=== PATIENT | female | born 1925 | race Caucasian/White ===

== ENCOUNTER 2016-11-18 16:34 | Inpatient (IN) | payer MEDICARE ==
[2016-11-18 18:21] LABS: Granulocytes % 88.8 % (36.0-66.0); Lymphocytes % 6.2 % (24.0-44.0); Mean Platelet Volume 9.6 fl (6-9.5); Platelet Count 162 K/mm3 (150-450); Red Blood Count 3.88 M/mm3 (4.1-5.4); Red Cell Distribution Width 13.6 % (11.5-14.0)
--- NOTE | 2016-11-18 18:21 | ERPHSYRPT ---
- History of Present Illness Time Seen by Provider: 11/18/16 17:30 Source: patient, family Patient Subjective Stated Complaint: stated fell backwards onto her bottom. states "was a hard fall onto her bottom" and scooted herself to the door to let her daughter in. was using a cane at the time of the fall. complaining of pain 9/10 lower back, left hip around anterior abdomen Triage Nursing Assessment: pt reports falling at home about 245pm backwards onto bottom. bruising to sacrum and buttocks crease. pt c/o pain to "tail bone" , left hip and pain radiating around abdomen. pt denies hitting her head or losing consciousness. stated was reaching to drop something in the trash and her right knee "gave out". Physician History: CC: fall Hx: 89 y/o patient of Dr Farris fell backwards landing on buttocks. She had no head injury. No neck pain. She has low back pain and buttock pain. Unable to really walk. Declines pain meds here. No N/T/W. No chest pain. Maybe some abd pain. Occurred: just prior to arrival Reason for Fall: fell from standing pos Injuries/Pain Location: pelvis, lower Loss of Consciousness: no loss of consciousness Severity of Pain-Max: severe Severity of Pain-Current: mild Allergies/Adverse Reactions: No Known Drug Allergies Allergy (Unverified 11/18/16 17:40) Hx Tetanus, Diphtheria Vaccination/Date Given: Yes Hx Influenza Vaccination/Date Given: Yes Hx Pneumococcal Vaccination/Date Given: No - Review of Systems Constitutional: No Fever, No Chills Eyes: No Symptoms Ears, Nose, & Throat: No Symptoms Respiratory: No Cough, No Dyspnea Cardiac: No Chest Pain Abdominal/Gastrointestinal: Abdominal Pain, No Nausea, No Vomiting Genitourinary Symptoms: Incontinence (chronic) Musculoskeletal: Back Pain, Fall, Injury, No Neck Pain Skin: No Rash Neurological: No Headache All Other Systems: Reviewed and Negative - Past Medical History Neurological History: No Pertinent History Cardiac History: Hypertension Respiratory History: No Pertinent History Endocrine Medical History: No Pertinent History Musculoskeletal History: Arthritis GI Medical History: No Pertinent History History: No Pertinent History Psycho-Social History: No Pertinent History Female Reproductive Disorders: No Pertinent History Other Medical History: NONE NOTED, frequent UTIs - Past Surgical History Past Surgical History: Yes Neuro Surgical History: No Pertinent History Cardiac: No Pertinent History Respiratory: No Pertinent History Gastrointestinal: No Pertinent History Genitourinary: No Pertinent History Musculoskeletal: Joint Replacement, Orthopedic Surgery Female Surgical History: Hysterectomy Other Surgical History: 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 - Social History Smoking Status: Never smoker Exposure to second hand smoke: No Drug Use: none - Nursing Vital Signs Nursing Vital Signs: Initial Vital Signs Temperature 97.9 F Temperature Source Oral Pulse Rate 75 Blood Pressure [Right Arm] 140/72 Pain Intensity 9 - [place] Coma Score Best Eye Response (Diane): (4) open spontaneously Best Verbal Response (Joppa): (5) oriented Best Motor Response (Diane): (6) obeys commands Diane Total: 15 - Physical Exam General Appearance: alert, other (very pleasant lady) Head Injury: no evidence of injury Eye Exam: PERRL/EOMI ENT Exam: airway nml Neck Exam: No mid-line tenderness Respiratory/Chest Exam: normal breath sounds, No chest tenderness Cardiovascular Exam: normal heart sounds, regular rate/rhythm Gastrointestinal Exam: soft, No tenderness, No distention, No mass, No guarding Extremity Exam: normal inspection, normal range of motion Neurologic Exam: alert, oriented x 3, cooperative, sensation nml, No motor deficits Skin Exam: warm, dry SpO2 Interpretation: borderline oxygenation SpO2: 92 Oxygen Delivery: Room Air Comment: tender low lumbar with some presacral eccymosis. Pelvis stable. - Course Nursing assessment & vital signs reviewed: Yes - CT Exams abd/pelvis/lumbar CT Interpretation: Tele-radiologist Report (sacral fracture, lumbar compression fx) Ordered Tests: Active Orders 24 hr Category Date Time Status IV Insertion STAT Care 11/18/16 18:07 Active ABDOMEN AND PELVIS W/0 CONTRAS [CT] Stat Exams 11/18/16 18:08 Taken RECONSTRUCTION [CT] Stat Exams 11/18/16 18:10 Taken CBC W DIFF Stat Lab 11/18/16 18:17 Completed CMP Stat Lab 11/18/16 18:17 Completed Medication Summary Discontinued Medications Generic Name Dose Route Start Last Admin Trade Name Freq PRN Reason Stop Dose Admin Fentanyl Citrate 25 mcg 11/18/16 18:51 11/18/16 18:56 Sublimaze 100 Mcg/2 Ml IV 11/18/16 18:52 25 mcg STAT ONE Administration Fentanyl Citrate Confirm 11/18/16 18:53 Sublimaze 100 Mcg/2 Ml Administered 11/18/16 18:54 Dose 100 mcg .ROUTE .STK-MED ONE Ondansetron HCl 4 mg 11/18/16 19:10 11/18/16 19:14 Zofran 4 Mg/2 Ml Vial IV 11/18/16 19:11 4 mg STAT ONE Administration Ondansetron HCl Confirm 11/18/16 19:11 Zofran 4 Mg/2 Ml Vial Administered 11/18/16 19:12 Dose 4 mg .ROUTE .STK-MED ONE Lab/Rad Data: Laboratory Result Diagrams 11/18/16 18:17 11/18/16 18:17 Laboratory Results 11/18/16 11/18/16 Range/Units 18:17 18:17 WBC 11.0 H (4.0-10.5) K/mm3 RBC 3.88 L (4.1-5.4) M/mm3 Hgb 11.7 L (12.0-16.0) gm/dl Hct 35.3 (35-47) % MCV 91.0 (78-100) fl MCH 30.1 (26-32) pg MCHC 33.1 (32-36) g/dl RDW 13.6 (11.5-14.0) % Plt Count 162 (150-450) K/mm3 MPV 9.6 H (6-9.5) fl Gran % 88.8 H (36.0-66.0) % Lymphocytes % 6.2 L (24.0-44.0) % Monocytes % 5.0 (0.0-12.0) % Eosinophils % 0.0 (0.00-5.0) % Basophils % 0.0 (0.0-0.4) % Basophils # 0 (0-0.4) Sodium 131 L (136-145) mEq/L Potassium 3.8 (3.5-5.1) mEq/L Chloride 95 L (98-107) mEq/L Carbon Dioxide 26.4 (21-32) mEq/L Anion Gap 13.7 (5-15) MEQ/L BUN 19 (9-20) mg/dL Creatinine 0.90 (0.55-1.30) mg/dl Estimated GFR > 60 ML/MIN Glucose 122 H (70-110) MG/DL Calcium 8.4 L (8.5-10.1) mg/dL Total Bilirubin 0.6 (0.2-1.0) mg/dL AST 27 (15-37) U/L ALT 17 (12-78) U/L Alkaline Phosphatase 68 (46-116) U/L Serum Total Protein 6.6 (6.4-8.2) gm/dL Albumin 3.7 (3.4-5.0) g/dL - Progress Progress Note: 11/18/16 18:[address] to rule out pelvic fracture. 11/18/16 19:37 Explained fractures to pt and family. They agree for consult with Dr Ghotra. He was called and advised admit and bed rest and he will see for consultation. Called Dr Rukhsana Lambert for [place] and will admit. Will see patient in: hospital (full admit) Counseled pt/family regarding: lab results, diagnosis, need for follow-up, rad results - Departure Time of Disposition: 19:38 Departure Disposition: In-patient Admission Clinical Impression: Fall, Sacral fracture, closed, Compression fracture of L1 lumbar vertebra Condition: Fair Critical Care Time: No Referrals: AUSTIN FARRIS [Primary Care Provider] -
[2016-11-18 18:22] LABS: Mean Corpuscular Hemoglobin 30.1 pg (26-32)
[2016-11-18] MEDS ORDERED: SUBLIMAZE 100 MCG/2 ML IV ONE (18:51)
[2016-11-18] MEDS ORDERED: SUBLIMAZE 100 MCG/2 ML ONE (18:53)
[2016-11-18 19:02] LABS: ALBUMIN 3.7 g/dL (3.4-5.0); ALKALINE PHOSPHATASE 68 U/L (46-116); ANION GAP 13.7 MEQ/L (5-15); BILIRUBIN,TOTAL 0.6 mg/dL (0.2-1.0); BLOOD UREA NITROGEN 19 mg/dL (9-20); CHLORIDE 95 mEq/L (98-107); Carbon Dioxide 26.4 mEq/L (21-32); Glucose 122 MG/DL (70-110); Potassium 3.8 mEq/L (3.5-5.1); SGOT/AST 27 U/L (15-37); SGPT/ALT 17 U/L (12-78); SODIUM 131 mEq/L (136-145); Total Protein 6.6 gm/dL (6.4-8.2)
[2016-11-18] MEDS ORDERED: Zofran 4 MG/2 ML VIAL IV ONE (19:10)
[2016-11-18] MEDS ORDERED: Zofran 4 MG/2 ML VIAL ONE (19:11)
[2016-11-18] MEDS ORDERED: TYLENOL 325 MG PO PRN (21:16)
[2016-11-18] MEDS: DILAUDID 2 MG INJECTION IV PRN (23:47)
[2016-11-19] MEDS: DILAUDID 2 MG INJECTION IV PRN (05:21)
[2016-11-19 05:52] LABS: Mean Cell Volume 91.5 fl (78-100); Mean Corpuscular Hemoglobin 30.4 pg (26-32); Mean Platelet Volume 10.6 fl (6-9.5); Platelet Count 144 K/mm3 (150-450); Red Blood Count 3.55 M/mm3 (4.1-5.4); Red Cell Distribution Width 13.7 % (11.5-14.0)
[2016-11-19 05:55] LABS: ANION GAP 12.4 MEQ/L (5-15); Carbon Dioxide 27.6 mEq/L (21-32); Potassium 3.7 mEq/L (3.5-5.1)
--- NOTE | 2016-11-19 08:42 | PCM.HP ---
History of Present Illness - Chief Complaint Chief Complaint: Fall, sacral fracture closed, compression fracture of L1 lumbar vertebra History of Present Illness: is a 89 year old female who was getting her mail yesterday and her leg went out from under her and she fell. Denies syncope. She was found to have T12/L1 fx in the ER and Dr. Ghotra was consulted. She is on ASA and celebrex at home. - Review of Systems Musculoskeletal: Back Pain, Fall, Myalgias (had bilat lower leg pain about 1-2 mo ago which has resolved) All Other Systems: Reviewed and Negative Medications & Allergies Allergies/Adverse Reactions: Allergies Allergy/AdvReac Type Severity Reaction Status Date / Time No Known Drug Allergies Allergy Verified 11/18/16 21:47 - Past Medical History Neurological History: No Pertinent History Cardiac History: Hypertension Respiratory History: No Pertinent History Endocrine Medical History: No Pertinent History Musculoskelatal History: Arthritis GI Medical History: No Pertinent History History: No Pertinent History Pyscho-Social History: No Pertinent History Reproductive Disorders: No Pertinent History Comment: NONE NOTED, frequent UTIs - Female History Are you now?: No - Past Surgical History Past Surgical History: Yes Neuro Surgical History: No Pertinent History Cardiac History: No Pertinent History Respiratory Surgery: No Pertinent History GI Surgical History: No Pertinent History Genitourinary Surgical Hx: No Pertinent History Musculskeletal Surgical Hx: Joint Replacement, Orthopedic Surgery Female Surgical History: Hysterectomy Other Surgical History: 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 - Social History Smoking Status: Never smoker Exposure to second hand smoke: No Alcohol: None Drug Use: none - Physical Exam Vital Signs: Vital Signs - 24 hr Temp Pulse Resp BP Pulse Ox 11/19/16 07:30 98.4 F 69 18 91/52 94 L 11/19/16 04:00 100.5 F 84 20 90/53 90 L 11/18/16 21:40 97.9 F 66 20 117/59 95 11/18/16 19:39 92 L 11/18/16 17:24 97.9 F 75 140/72 92 L 11/18/16 16:34 97.9 F 75 140/72 92 L General Appearance: mild distress Neurologic Exam: alert, oriented x 3, cooperative Eye Exam: eyes nml inspection Neck Exam: normal inspection Respiratory Exam: normal breath sounds, lungs clear, No crackles/rales, No rhonchi, No wheezing Cardiovascular Exam: regular rate/rhythm, normal heart sounds Gastrointestinal/Abdomen Exam: soft, normal bowel sounds, No tenderness, No distention Back Exam: other (difficult due to pain with changing position) Extremity Exam: No pedal edema, No swelling Skin Exam: normal color, warm, dry Results - Labs Lab/Micro Results: Lab Results-Last 24 Hours 11/19/16 11/19/16 Range/Units 05:00 05:00 WBC 8.0 (4.0-10.5) K/mm3 RBC 3.55 L (4.1-5.4) M/mm3 Hgb 10.8 L (12.0-16.0) gm/dl Hct 32.5 L (35-47) % MCV 91.5 (78-100) fl MCH 30.4 (26-32) pg MCHC 33.2 (32-36) g/dl RDW 13.7 (11.5-14.0) % Plt Count 144 L (150-450) K/mm3 MPV 10.6 H (6-9.5) fl Sodium 131 L (136-145) mEq/L Potassium 3.7 (3.5-5.1) mEq/L Chloride 95 L (98-107) mEq/L Carbon Dioxide 27.6 (21-32) mEq/L Anion Gap 12.4 (5-15) MEQ/L BUN 19 (9-20) mg/dL Creatinine 0.94 (0.55-1.30) mg/dl Estimated GFR 60 ML/MIN Glucose 119 H (70-110) MG/DL Calcium 8.1 L (8.5-10.1) mg/dL Prealbumin 19.6 (18.0-35.7) mg/dL Assessment/Plan (1) Compression fracture of L1 lumbar vertebra Current Visit: Yes Status: Acute Assessment & Plan: Dr. Ghotra to consult. She was on ASA and celebrex SERVICE STATION OPERATOR. Code(s): S32.010A - WEDGE COMPRESSION FRACTURE OF FIRST LUMBAR VERTEBRA, INIT (2) Hypertension Current Visit: Yes Status: Acute Assessment & Plan: continue home meds. Code(s): I10 - ESSENTIAL (PRIMARY) HYPERTENSION (3) Fall Current Visit: Yes Status: Acute Assessment & Plan: PT to eval when pain is controlled. Code(s): W19.XXXA - UNSPECIFIED FALL, INITIAL ENCOUNTER
--- NOTE | 2016-11-19 08:58 | XRAY ---
Indication: Pelvic and low back pain following fall. Axial, coronal, and sagittal reformatted images of the lumbar spine obtained using the right data from the CT abdomen/pelvis study of the same day. Comparison: CTA abdomen/pelvis October 15, 2016. CT abdomen/pelvis reported separately. Osseous structures remain demineralized consistent with patient's age. New acute appearing L1 compression fracture with approximately 25% height loss but no encroachment on the spinal canal or foramina. Stable multilevel degenerative spondylosis, remote T12 compression deformity, and grade 1 spondylolisthesis of L4 on L5 on S1. Impression: 1. New acute fracture of L1 as detailed. 2. Stable osteopenia, remote T12 compression fracture, and grade 1 spondylolisthesis of L4 on L5 on S1. Comment: Preliminary interpretation was made by [facility]. No discrepancy. CT DI 19.50
--- NOTE | 2016-11-19 08:59 | XRAY ---
Indication: Pelvic and low back pain following fall. Multiple contiguous axial images obtained through the abdomen and pelvis without contrast as ordered. Comparison: CTA abdomen/pelvis October 15, 2016. Lung bases again demonstrates bibasilar fibrosis/scarring and moderate hiatal hernia with partial intrathoracic stomach. No infiltrate, consolidation, or effusion. Heart is not enlarged. Noncontrasted stomach and bowel loops appear nonobstructed. Again scattered sigmoid diverticulosis. No free fluid/air. Again images through the pelvis limited by extreme beam artifact from bilateral hip prostheses. Stable fatty liver, left renal exophytic cyst, a few calcified splenic granulomas, and fatty replaced pancreas. Remaining liver, gallbladder, pancreas, spleen, adrenal glands, kidneys, ureters, and visualized urinary bladder appear unremarkable for noncontrast exam. There remains aortoiliac calcifications without AAA. Osseous structures remain demineralized consistent with patient's age. New acute appearing L1 compression fracture with approximately 25% height loss but no encroachment on the spinal canal. Also new nondisplaced lower sacral fracture with minimal pre-sacral edema/fluid. Stable remote bilateral pubic bone fractures, multilevel degenerative spondylosis, remote T12 compression deformity, and L5 grade 1 spondylolisthesis. Impression: 1. New acute fractures of L1 and distal sacrum as detailed. 2. Stable hiatal hernia with partial intrathoracic stomach, fatty liver, sigmoid diverticulosis, left renal cyst, bilateral hip arthroplasty, osteopenia, remote T12 compression fracture, remote pubic bone fractures, and L5 grade 1 spondylolisthesis. Comment: Preliminary interpretation was made by [facility]. No discrepancy. CT DI 19.50
[2016-11-19] MEDS: Morphine PCA 1 MG/ML 30 ML IV PRN (10:17)
[2016-11-19] MEDS: Sodium Chloride 0.9% 1000 ML 1,000 ML IV SCH (10:24)
[2016-11-19] MEDS: Zofran 4 MG/2 ML VIAL IV PRN ×2 (13:23→19:30)
[2016-11-19] MEDS: Lopressor 50 MG PO SCH (13:36)
[2016-11-19] MEDS: hydroDIURIL 25 MG PO SCH (13:36)
[2016-11-20] MEDS: Sodium Chloride 0.9% 1000 ML 1,000 ML IV SCH (05:24)
--- NOTE | 2016-11-20 07:49 | PCM.NOTE ---
Date and Time: 11/20/16 0744 Subjective Assessment: Pt not having much pain currently. She had some nausea last night, which has resolved; rosario po. [place] disoriented last night but is feeling better this morning. Objective Exam General Appearance: no apparent distress Neurologic Exam: alert, oriented x 3, cooperative Skin Exam: warm, dry Respiratory Exam: normal breath sounds, lungs clear, No crackles/rales, No rhonchi, No wheezing Cardiovascular Exam: regular rate/rhythm, normal heart sounds, No murmur Extremity Exam: other (TEDs/SCDs in place bilat), No pedal edema, No swelling OBJECTIVE DATA Vital Signs: Vital Signs - 24 hr Temp Pulse Resp BP Pulse Ox 11/20/16 04:00 99.4 F 69 16 99/51 95 11/20/16 00:00 99.1 F 78 20 130/60 92 L 11/19/16 20:40 106 H 18 98 11/19/16 20:00 98.6 F 74 18 117/59 97 11/19/16 18:23 93 L 11/19/16 16:00 98.3 F 70 17 126/64 98 11/19/16 12:00 98.3 F 69 17 108/52 88 L 11/19/16 11:54 89 L 11/19/16 10:17 91 L Oxygen-Last 24 hours O2 Percentage 2 Liters = 28% O2 Percentage 2 Liters = 28% O2 Percentage 2 Liters = 28% O2 Percentage 2 Liters = 28% Pain Assessment - Last Documented Pain Intensity 2 Pain Scale Used 0-10 Pain Scale Intake and Output: Intake & Output 11/17/16 11/18/16 11/19/16 11/20/16 11:59 11:59 11:59 11:59 Intake Total 900 1519 Output Total 1150 800 Balance -250 719 Weight 86.999 kg Assessment/Plan (1) Compression fracture of L1 lumbar vertebra Current Visit: Yes Status: Acute Assessment & Plan: Dr. Ghotra saw the patient yesterday, apparently she can start therapy today, can start up with bedside commode. Pt stated, "I just don't want to have surgery" but there is no dictation available - I don't know if she is referring to kyphoplasty or not. Code(s): S32.010A - WEDGE COMPRESSION FRACTURE OF FIRST LUMBAR VERTEBRA, INIT (2) Hypertension Current Visit: Yes Status: Acute Assessment & Plan: medicine held yesterday for some hypotension. Continue to hold until systolic bp > 120. Code(s): I10 - ESSENTIAL (PRIMARY) HYPERTENSION (3) Fall Current Visit: Yes Status: Acute Assessment & Plan: PT to eval/tx starting today. Code(s): W19.XXXA - UNSPECIFIED FALL, INITIAL ENCOUNTER (4) delerium Current Visit: Yes Status: Acute Assessment & Plan: apparently mild, reassured patient this is common in her age group. would have blinds open and pt up during the day as much as possible, orient patient frequently. She does not appear at all disoriented this morning.
--- NOTE | 2016-11-20 07:59 | CONS ---
CONSULT DATE: 11/19/2016 HISTORY: The patient is an 89 year-old white female with blunt trauma injury to her buttocks with incidental fall striking the sacral-buttock area and sustained fractures of the sacrum and T12-L1. The patient has been supine since injury with bed rest and has a green light to be fed. Neurovascular status is unremarkable. Leg lengths are equal bilaterally. Log roll bilaterally are negative. Lumbar spine is just generalized fashion not much in the thoracolumbar spine. Nontender over the sacral or sacrococcygeal area. Digital exam has not been performed. Imaging studies, CT's and x-rays have been removed and consistent with acute compression of L1. I do not see evidence of a burst fracture or middle column destruction. T12 may be involved as well as there is generalized osteoporosis, osteopenia and bowtie changes of both L1 and T12. Insufficiency fracture of the sacrum is less clear but no retroflexion, anteroflexion of the coccygeal tail is appreciated. IMPRESSION: 1) Injuries sacrococcygeal structures. 2) Compression fractures T12 and L1. 3) Nonsurgical status. RECOMMENDATION: The patient should be able to continue to be fed, get up with gait training tonight and physical therapy tomorrow. Weight bearing as tolerated with a walker and Lovenox 30 mg subcu every 24 hours and thigh high TRACEY hose as well for thrombo prophylaxis. I have described to the family and to the patient that two maybe three weeks of pain and then six weeks or more for the fractures to heal.
[2016-11-20] MEDS: Zofran 4 MG/2 ML VIAL IV PRN ×2 (08:00→18:21)
[2016-11-20] MEDS ORDERED: Phenergan 25 MG INJ IV PRN (08:45)
--- NOTE | 2016-11-20 09:43 | XRAY ---
Indication: Vomiting. Comparison: None Supine and left lateral decubitus abdomen demonstrates nonspecific nonobstructed bowel gas pattern. No free air. Visualized solid organs are unremarkable. Scattered vascular calcifications. Osseous structures markedly demineralized consistent with patient's age with multilevel spinal spondylosis and bilateral hip arthroplasty. Impression: Nonacute nonobstructed abdomen with chronic features.
[2016-11-20] MEDS: Lopressor 50 MG PO SCH (09:48)
[2016-11-20] MEDS: hydroDIURIL 25 MG PO SCH (09:48)
[2016-11-20] MEDS: Morphine PCA 1 MG/ML 30 ML IV PRN (19:18)
[2016-11-20] MEDS: ENOXAPARIN SODIUM SQ SCH (20:12)
[2016-11-21] MEDS: Sodium Chloride 0.9% 1000 ML 1,000 ML IV SCH ×2 (01:19→01:28)
[2016-11-21] MEDS: Morphine PCA 1 MG/ML 30 ML IV PRN (06:48)
[2016-11-21 07:32] VITALS: BP 112/59
[2016-11-21] MEDS: Lopressor 50 MG PO SCH (09:43)
[2016-11-21] MEDS: hydroDIURIL 25 MG PO SCH (09:43)
[2016-11-21] MEDS: ENOXAPARIN SODIUM SQ SCH (09:44)
[2016-11-21] MEDS ORDERED: NORCO 5/325 MG PO PRN (10:06)
[2016-11-21] MEDS ORDERED: Miralax Powder 17GM PACKET PO PRN (10:07)
[2016-11-21 12:16] VITALS: PULSE 73; O2SAT 97
[2016-11-21] MEDS ORDERED: Colace 100 MG PO SCH (22:00)
--- NOTE | 2016-11-24 08:13 | DS ---
DISCHARGE DIAGNOSES: 1) L1 VERTEBRAL FRACTURE. 2) SACRAL FRACTURE. 3) HYPERTENSION. 4) FALL. 5) VOMITING. DISCHARGE PHYSICAL EXAMINATION: VITALS: Temperature current 99.4F, temperature max 99.4F, heart rate 75 to 108, respiratory rate 16 to 18, blood pressure 112 to 115 over 59 to 80, weight 86.9 kg. Oxygen saturation 93 to 97% on 2 liters nasal cannula. GENERAL: The patient is lying in bed with her family at the bedside in no acute distress. CVS: She has a regular rate and rhythm. No murmurs, gallops or rubs are appreciated. CHEST: Clear to auscultation bilaterally. No crackles or wheezes. ABDOMEN: Soft, nontender, nondistended with normal bowel sounds. EXTREMITIES: No clubbing, cyanosis or edema. SKIN: Warm, dry and intact. HOSPITAL COURSE: 1) L1 VERTEBRAL FRACTURE: This was found on a CT scan of her abdomen and pelvis. The patient was seen by orthopedic surgeon, Dr. Neil Ghotra, and they have elected to go with medical management. She was seen by physical therapy yesterday and reports she was able to ambulate in her room. Will discharge her to swing-bed to continue with physical therapy as well as pain management. 2) SACRAL FRACTURE: Again seen on the CT of her abdomen and pelvis with management as above for the L1 vertebral fracture. 3) HYPERTENSION: Her blood pressure has been well controlled on her current antihypertensive medication 4) FALL: The patient reports that she had to scoot around in her house after falling. The patient was encouraged to obtain a Lifeline button for when she did go home so that she would be able to alert her family more readily in case she fell again as she lives alone. 5) VOMITING: She had some nausea and vomiting yesterday this has since resolved and she is able to take solid food for breakfast without any problems. DISCHARGE MEDICATIONS: She will continue all of her current medications. DISPOSITION: The patient will be discharged to swing-bed for continued therapy and pain management.
== END 2016-11-21 13:50 | disposition swing bed (61) | DRG 552 ==
LOC: ED 16:34 → MED SURG 20:44
PROVIDERS: ADMIT Family Medicine; ATTEND Family Medicine
DX: S32.010A Wedge compression fracture of first lumbar vertebra, initial encounter for closed fracture (principal); S22.089A Unspecified fracture of T11-T12 vertebra, initial encounter for closed fracture; S32.10XA Unspecified fracture of sacrum, initial encounter for closed fracture; I10 Essential (primary) hypertension; W19.XXXA Unspecified fall, initial encounter; R41.0 Disorientation, unspecified; M81.0 Age-related osteoporosis without current pathological fracture; M85.88 Other specified disorders of bone density and structure, other site
CPT/HCPCS: 36000; 36415; 74020; 74176; 76376; 80048; 80053; 84134; 85025; 85027; 94760; 96374; 99285; J1170; J1650; J2270; J2405; J3010

== ENCOUNTER 2016-11-24 08:48 | Inpatient (IN) | payer MEDICARE ==
[2016-11-24] MEDS ORDERED: Phenergan 25 MG INJ IV PRN (10:04)
[2016-11-24] MEDS ORDERED: Zofran 4 MG/2 ML VIAL IV PRN (10:04)
[2016-11-24] MEDS ORDERED: TYLENOL 325 MG PO PRN (10:04)
[2016-11-24] MEDS ORDERED: DULCOLAX 5 MG PO PRN (10:04)
[2016-11-24] MEDS: BENADRYL 25 MG CAPSULE PO PRN (11:49)
[2016-11-24] MEDS: Norco 10/325 MG Tablet PO SCH ×4 (11:49→21:53)
[2016-11-24] MEDS: DELTASONE 20 MG PO SCH (11:49)
[2016-11-24] MEDS: Lopressor 50 MG PO SCH (11:49)
[2016-11-24] MEDS: Colace 100 MG PO SCH (11:49)
[2016-11-24] MEDS: hydroDIURIL 25 MG PO SCH (11:49)
[2016-11-24] MEDS: Miralax Powder 17GM PACKET PO PRN (11:50)
[2016-11-24] MEDS ORDERED: Sodium Chloride 0.9% 100 ML IVPB 100 ML IV ONE (15:48)
[2016-11-24] MEDS ORDERED: Sodium Chloride 0.9% 1000 ML 1,000 ML ONE (17:20)
[2016-11-24] MEDS: Macrobid 100MG Capsule PO SCH (17:25)
[2016-11-24] MEDS: Sodium Chloride 0.9% 1000 ML 1,000 ML IV SCH (17:27)
[2016-11-24] MEDS: Morphine PCA 1 MG/ML 30 ML IV PRN (19:39)
[2016-11-25] MEDS: Macrobid 100MG Capsule PO SCH ×2 (07:53→16:37)
[2016-11-25] MEDS: DELTASONE 20 MG PO SCH (08:57)
[2016-11-25] MEDS: ENOXAPARIN SODIUM SQ SCH (08:57)
[2016-11-25] MEDS: Colace 100 MG PO SCH ×2 (08:57→21:19)
[2016-11-25] MEDS: Lopressor 50 MG PO SCH (08:57)
[2016-11-25] MEDS: Miralax Powder 17GM PACKET PO PRN (08:57)
[2016-11-25] MEDS: hydroDIURIL 25 MG PO SCH (08:57)
[2016-11-25] MEDS: celeBREX 100 MG PO SCH (09:02)
--- NOTE | 2016-11-25 09:50 | PCM.NOTE ---
Date and Time: 11/25/1649 Subjective Assessment: patient c/o bowels not moving x 1 week, feels bloated and constipated. no chest pain, no syncope, no dyspnea or other complaints Objective Exam General Appearance: no apparent distress, alert Respiratory Exam: normal breath sounds, lungs clear, No respiratory distress Cardiovascular Exam: regular rate/rhythm, normal heart sounds Gastrointestinal/Abdomen Exam: soft, No tenderness, No mass Extremity Exam: normal inspection, normal range of motion OBJECTIVE DATA Vital Signs: Vital Signs - 24 hr Temp Pulse Resp BP Pulse Ox 11/25/16 07:12 97 11/25/16 07:00 97.7 F 71 18 124/75 97 11/25/16 03:00 98.0 F 70 14 109/62 97 11/24/16 23:00 98.4 F 72 16 109/62 96 11/24/16 21:12 72 16 94 L 11/24/16 19:39 96 11/24/16 19:00 97.8 F 81 16 110/76 93 L 11/24/16 15:20 98.2 F 76 20 120/68 94 L 11/24/16 11:25 63 18 97 11/24/16 11:20 98.7 F 104 H 20 131/92 95 11/24/16 10:09 98.7 F 104 H 20 131/92 95 Oxygen-Last 24 hours O2 Percentage 2 Liters = 28% O2 Percentage 2 Liters = 28% O2 Percentage 2 Liters = 28% O2 Percentage 3 Liters = 32% O2 Percentage 2 Liters = 28% O2 Percentage 2 Liters = 28% O2 Percentage 2 Liters = 28% Pain Assessment - Last Documented Pain Intensity 0 Pain Scale Used 0-10 Pain Scale Intake and Output: Intake & Output 11/22/16 11/23/16 11/24/16 11/25/16 11:59 11:59 11:59 11:59 Intake Total 2431 Output Total 450 1400 Balance -450 1031 Weight 78.426 kg Assessment/Plan (1) Atrial fibrillation Current Visit: Yes Status: Acute Assessment & Plan: appears to be in normal sinus at this time, will check EKG this am. continue telemetry Code(s): I48.91 - UNSPECIFIED ATRIAL FIBRILLATION (2) Compression fracture of L1 lumbar vertebra Current Visit: No Status: Acute Code(s): S32.010A - WEDGE COMPRESSION FRACTURE OF FIRST LUMBAR VERTEBRA, INIT (3) Constipated Current Visit: No Status: Acute Assessment & Plan: try fleetz enema Code(s): K59.00 - CONSTIPATION, UNSPECIFIED
[2016-11-25] MEDS: BENADRYL 25 MG CAPSULE PO PRN ×2 (11:06→17:50)
[2016-11-25] MEDS: Sodium Chloride 0.9% 1000 ML 1,000 ML IV SCH (11:29)
[2016-11-26 05:42] LABS: BASOPHIL % 0.2 % (0.0-0.4); Eosinophil % 0.5 % (0.00-5.0); Granulocytes % 70.8 % (36.0-66.0); Lymphocytes % 19.7 % (24.0-44.0); Mean Corpuscular Hemoglobin 30.3 pg (26-32); Mean Platelet Volume 9.8 fl (6-9.5); Monocytes % 8.8 % (0.0-12.0); Platelet Count 240 K/mm3 (150-450); Red Cell Distribution Width 13.9 % (11.5-14.0); White Blood Count 5.6 K/mm3 (4.0-10.5)
[2016-11-26 06:12] LABS: ANION GAP 6.5 MEQ/L (5-15); BLOOD UREA NITROGEN 13 mg/dL (9-20); CHLORIDE 105 mEq/L (98-107); Carbon Dioxide 31.7 mEq/L (21-32); Glucose 111 MG/DL (70-110); Potassium 3.8 mEq/L (3.5-5.1); SODIUM 139 mEq/L (136-145)
[2016-11-26] MEDS: Morphine PCA 1 MG/ML 30 ML IV PRN (07:23)
[2016-11-26] MEDS: Macrobid 100MG Capsule PO SCH (07:26)
[2016-11-26 07:31] VITALS: BP 125/69
[2016-11-26 07:40] VITALS: PULSE 72
[2016-11-26] MEDS: Sodium Chloride 0.9% 1000 ML 1,000 ML IV SCH (08:35)
[2016-11-26] MEDS: BENADRYL 25 MG CAPSULE PO PRN (09:00)
--- NOTE | 2016-11-26 09:11 | PCM.DS ---
Discharge Summary Date of Admission: 11/24/16 08:48 Admitting Physician: AUSTIN DUFF Primary Care Provider: AUSTIN DUFF Allergies Allergies acetaminophen [From Percocet] Adverse Reaction (Verified 11/24/16 08:38) Rash oxycodone [From Percocet] Adverse Reaction (Verified 11/24/16 08:38) Rash Hospital Summary - Hospital Course Hospital Course: Pt was put in swing bed initially for therapy, then was noted to have atrial fibrillation and was moved to a med surg bed for several days. She was quite constipated and finally got results with Fleet's enema and states, "I feel 100% better!" rosario po. afebrile. Continues to have intermitent erytehamtous lesions on her skin that are itchy; better with benadryl. - Vitals & Intake/Output Vital Signs: Vital Signs Temperature 98.4 F 11/26/16 07:00 Pulse Rate 72 11/26/16 07:38 Respiratory Rate 18 11/26/16 07:38 Blood Pressure 125/69 11/26/16 07:00 O2 Sat by Pulse Oximetry 99 11/26/16 07:38 Oxygen-Last Documented O2 Percentage 1 Liter = 24% Intake & Output: Intake & Output 11/23/16 11/24/16 11/25/16 11/26/16 11:59 11:59 11:59 11:59 Intake Total 2431 2558 Output Total 450 1400 1450 Balance -450 1031 1108 Weight 78.426 kg 78.426 kg - Lab Result Diagrams: 11/26/16 05:18 11/26/16 05:18 Lab Results-Last 24 Hrs: Lab Results-Last 24 Hours 11/26/16 11/26/16 Range/Units 05:18 05:18 WBC 5.6 (4.0-10.5) K/mm3 RBC 3.00 L (4.1-5.4) M/mm3 Hgb 9.1 L (12.0-16.0) gm/dl Hct 28.5 L (35-47) % MCV 95.0 (78-100) fl MCH 30.3 (26-32) pg MCHC 31.9 L (32-36) g/dl RDW 13.9 (11.5-14.0) % Plt Count 240 (150-450) K/mm3 MPV 9.8 H (6-9.5) fl Gran % 70.8 H (36.0-66.0) % Lymphocytes % 19.7 L (24.0-44.0) % Monocytes % 8.8 (0.0-12.0) % Eosinophils % 0.5 (0.00-5.0) % Basophils % 0.2 (0.0-0.4) % Basophils # 0.01 (0-0.4) Sodium 139 (136-145) mEq/L Potassium 3.8 (3.5-5.1) mEq/L Chloride 105 (98-107) mEq/L Carbon Dioxide 31.7 (21-32) mEq/L Anion Gap 6.5 (5-15) MEQ/L BUN 13 (9-20) mg/dL Creatinine 0.79 (0.55-1.30) mg/dl Estimated GFR > 60 ML/MIN Glucose 111 H (70-110) MG/DL Calcium 8.0 L (8.5-10.1) mg/dL - Procedures and Test Procedures and Tests throughout Hospitalization: Therapy Orders & Screens 11/24/16 10:48 OT Screen per Nursing Assess ONCE Comment: Protocol Order Physician Instructions: Greater than 3 points order OT Admission Screening Reason For Exam: Triggered on Admission Diagnosis: irregular heart beat Open Wound/Cellutlitis/Pressure Ulcers: No Acute Fx/ORIF/Change in wt bearing status: Yes Severe MUSCULOSKELETAL pain: No ADL Dysfunction: Yes Acute CVA w/Hemiparesis/Hemiplegia: No Decreased Functional Mobility/Strength: No Sprain/Strain: No Acute Post-op Mobility Dysfunction: No Total Points: 8 PT Screen per Nursing Assess ONCE Comment: Protocol Order Physician Instructions: Greater than 3 points order PT Admission Screenin Reason For Exam: Triggered on Admission Diagnosis: irregular heart beat Open Wound/Cellutlitis/Pressure Ulcers: No Acute Fx/ORIF/Change in wt bearing status: Yes Severe MUSCULOSKELETAL pain: No ADL Dysfunction: Yes Acute CVA w/Hemiparesis/Hemiplegia: No Decreased Functional Mobility/Strength: No Sprain/Strain: No Acute Post-op Mobility Dysfunction: No Total Points: 8 11/24/16 11:05 Incentive Spirometry Assessmen TID Comment: Diagnosis: irregular heart beat 11/24/16 11:30 Oxygen NASAL CANNULA 2 lpm Comment: Diagnosis: irregular heart beat 11/25/16 09:48 EKG ROUTINE Comment: Diagnosis: irregular heart beat Discharge Exam General Appearance: no apparent distress Neurologic Exam: alert, oriented x 3, cooperative Skin Exam: warm, dry Respiratory Exam: normal breath sounds, lungs clear, No crackles/rales, No rhonchi, No wheezing Cardiovascular Exam: regular rate/rhythm, normal heart sounds, No murmur Extremity Exam: No pedal edema, No swelling Final Diagnosis/Problem List - Final Discharge Diagnosis/Problem (1) Compression fracture of L1 lumbar vertebra Current Visit: No Status: Acute Assessment & Plan: Non surgical management, appreciate Dr. Ghotra consulting. Will return pt to swing bed today for further therapy. Pain is much better, has been on scheduled pain meds and hasn't needed the morphine pump all night. (2) Atrial fibrillation Current Visit: Yes Status: Acute Assessment & Plan: intermittent. will plan to send home on Eliquis as I believe this is a [employer] product. (3) UTI (urinary tract infection) Current Visit: No Status: Acute Assessment & Plan: ON IV rocephin. UCx pending. (4) Anemia Current Visit: Yes Status: Acute Priority: Medium Assessment & Plan: will check hemoccult x 3. - Discharge Disposition: Swing Bed @ [facility]S [facility]CLUDE [facility] BEDS AT THE [facility] Condition: Stable Prescriptions: No Action Metoprolol Tartrate 50 mg [Lopressor 50 MG] 50 mg PO DAILY Hydrochlorothiazide 25 mg [hydroDIURIL 25 MG] 25 mg PO DAILY Celecoxib 100 mg [celeBREX 100 MG] 100 mg PO DAILY Aspirin [Aspir-Low] 81 mg PO DAILY Additional Instructions: Swing bed with no change to current orders. Follow up with: AUSTIN DUFF [Primary Care Provider] - 1 Week Forms: Patient Portal Information
[2016-11-26] MEDS: celeBREX 100 MG PO SCH (09:25)
[2016-11-26] MEDS: DELTASONE 20 MG PO SCH (09:26)
[2016-11-26] MEDS: Colace 100 MG PO SCH (09:26)
[2016-11-26] MEDS: Lopressor 50 MG PO SCH (09:26)
[2016-11-26] MEDS: ENOXAPARIN SODIUM SQ SCH (09:26)
[2016-11-26 11:38] VITALS: O2SAT 98
== END 2016-11-26 14:40 | disposition swing bed (61) | DRG 552 ==
LOC: MED SURG 08:48 → UNDOADMIN 09:20 → MED SURG 09:20
PROVIDERS: ADMIT Family Medicine; ATTEND Family Medicine
DX: S32.010A Wedge compression fracture of first lumbar vertebra, initial encounter for closed fracture (principal); N39.0 Urinary tract infection, site not specified; I48.91 Unspecified atrial fibrillation; D64.9 Anemia, unspecified; K59.00 Constipation, unspecified
CPT/HCPCS: 36415; 80048; 85025; 93005; 94760; J1650; J2270; A9270-GY

== ENCOUNTER 2016-11-26 14:40 | Inpatient (IN) | payer MEDICARE ==
[2016-11-26] MEDS ORDERED: BENADRYL 25 MG CAPSULE PO PRN (14:51)
[2016-11-26] MEDS ORDERED: TYLENOL 325 MG PO PRN (14:51)
[2016-11-26] MEDS ORDERED: DULCOLAX 5 MG PO PRN (14:51)
[2016-11-26] MEDS: Macrobid 100MG Capsule PO SCH (16:48)
[2016-11-26] MEDS: Morphine PCA 1 MG/ML 30 ML IV PRN (16:51)
[2016-11-26] MEDS: ROCEPHIN 1 Gm-D5w 50 ml Bag** 50 ML IV SCH (17:58)
[2016-11-26] MEDS: Colace 100 MG PO SCH (22:59)
[2016-11-27 05:35] LABS: BASOPHIL % 0.2 % (0.0-0.4); Eosinophil % 0.2 % (0.00-5.0); Granulocytes % 71.8 % (36.0-66.0); Lymphocytes % 18.7 % (24.0-44.0); Mean Cell Volume 94.2 fl (78-100); Mean Platelet Volume 9.5 fl (6-9.5); Monocytes % 9.1 % (0.0-12.0); Platelet Count 279 K/mm3 (150-450); Red Blood Count 3.27 M/mm3 (4.1-5.4); Red Cell Distribution Width 14.2 % (11.5-14.0); White Blood Count 6.1 K/mm3 (4.0-10.5)
[2016-11-27 05:36] LABS: Mean Corpuscular Hemoglobin 30.2 pg (26-32)
[2016-11-27 05:54] LABS: ANION GAP 9.5 MEQ/L (5-15); BLOOD UREA NITROGEN 10 mg/dL (9-20); CHLORIDE 102 mEq/L (98-107); Carbon Dioxide 30.9 mEq/L (21-32); Glucose 109 MG/DL (70-110); Potassium 3.9 mEq/L (3.5-5.1); SODIUM 139 mEq/L (136-145)
[2016-11-27] MEDS: Sodium Chloride 0.9% 1000 ML 1,000 ML IV SCH ×2 (06:24→13:53)
[2016-11-27] MEDS: Morphine PCA 1 MG/ML 30 ML IV PRN ×2 (06:34→14:39)
--- NOTE | 2016-11-27 08:59 | PCM.NOTE ---
Date and Time: 11/27/16 0854 Subjective Assessment: Pt nauseated this morning. Has not been eating well. Family member notes she has a hard time swallowing for the past few months. She does not have much pain in her abdomen currently although that has been her main complaint for the past day or two. She c/o RLQ pain radiating to the lower back. Occurs when she sits or stands. - Review of Systems Constitutional: No Fever Abdominal/Gastrointestinal: Nausea, Vomiting Objective Exam General Appearance: mild distress (just s/p vomiting) Neurologic Exam: alert, oriented x 3, cooperative Skin Exam: normal color, warm, dry Respiratory Exam: normal breath sounds, lungs clear, No crackles/rales, No rhonchi, No wheezing Cardiovascular Exam: irregular, No murmur Gastrointestinal/Abdomen Exam: soft, mass (suprapubic, firm), No tenderness, No guarding, No rebound Extremity Exam: No pedal edema, No swelling OBJECTIVE DATA Vital Signs: Vital Signs - 24 hr Temp Pulse Resp BP Pulse Ox 11/27/16 07:37 97.4 F 74 16 151/80 95 11/27/16 06:34 94 L 11/26/16 20:51 94 L 11/26/16 19:56 97.9 F 75 16 148/78 94 L 11/26/16 19:43 95 11/26/16 16:55 98 11/26/16 16:51 98 11/26/16 14:59 72 18 96 Pain Assessment - Last Documented Pain Intensity 7 Pain Scale Used FLACC Intake and Output: Intake & Output 11/24/16 11/25/16 11/26/16 11/27/16 11:59 11:59 11:59 11:59 Intake Total 1889 Output Total 350 300 Balance -350 1589 Weight 78.018 kg Lab Results: Lab Results-Last 24 Hours 11/26/16 11/27/16 11/27/16 Range/Units 20:30 05:31 05:31 WBC 6.1 (4.0-10.5) K/mm3 RBC 3.27 L (4.1-5.4) M/mm3 Hgb 9.9 L (12.0-16.0) gm/dl Hct 30.8 L (35-47) % MCV 94.2 (78-100) fl MCH 30.2 (26-32) pg MCHC 32.1 (32-36) g/dl RDW 14.2 H (11.5-14.0) % Plt Count 279 (150-450) K/mm3 MPV 9.5 (6-9.5) fl Gran % 71.8 H (36.0-66.0) % Lymphocytes % 18.7 L (24.0-44.0) % Monocytes % 9.1 (0.0-12.0) % Eosinophils % 0.2 (0.00-5.0) % Basophils % 0.2 (0.0-0.4) % Basophils # 0.01 (0-0.4) Sodium 139 (136-145) mEq/L Potassium 3.9 (3.5-5.1) mEq/L Chloride 102 (98-107) mEq/L Carbon Dioxide 30.9 (21-32) mEq/L Anion Gap 9.5 (5-15) MEQ/L BUN 10 (9-20) mg/dL Creatinine 0.78 (0.55-1.30) mg/dl Estimated GFR > 60 ML/MIN Glucose 109 (70-110) MG/DL Calcium 8.1 L (8.5-10.1) mg/dL Stool Occult Blood NEGATIVE (Negative) Assessment/Plan (1) Compression fracture of L1 lumbar vertebra Current Visit: No Status: Acute Qualifiers: Encounter type: subsequent encounter Assessment & Plan: On CT, the fx had worsened. Could account for her continued pain. Will increase the po pain meds in hopes of controlling her pain at baseline. She does not use the morphine pump frequently, will d/c that and change to IV morphine prn. Had an allergic reaction, thought to be from the percocet. Code(s): S32.010A - WEDGE COMPRESSION FRACTURE OF FIRST LUMBAR VERTEBRA, INIT (2) Abdominal pain Current Visit: Yes Status: Acute Assessment & Plan: I think may be referred pain from the vertebral fracture. CT abd/pelvis with contrast yesterday with nothing acute. Code(s): R10.9 - UNSPECIFIED ABDOMINAL PAIN (3) Anemia Current Visit: No Status: Acute Qualifiers: Anemia type: unspecified type Qualified Code(s): D64.9 - Anemia, unspecified Assessment & Plan: has been 9-10 during her stay here. Code(s): D64.9 - ANEMIA, UNSPECIFIED (4) Abdominal mass Current Visit: No Status: Acute Assessment & Plan: Will check postvoid residual again; likely her bladder Code(s): R19.00 - INTRA-ABD AND PELVIC SWELLING, MASS AND LUMP, UNSP SITE (5) Atrial fibrillation Current Visit: No Status: Acute Assessment & Plan: intermittent. Pt will go home on Eliquis. On Lovenox here. Code(s): I48.91 - UNSPECIFIED ATRIAL FIBRILLATION
[2016-11-27] MEDS: Norco 10/325 MG Tablet PO SCH ×6 (09:44→22:29)
[2016-11-27] MEDS: ENOXAPARIN SODIUM SQ SCH (09:47)
[2016-11-27] MEDS: Zofran 4 MG/2 ML VIAL IV PRN (09:52)
[2016-11-27] MEDS: Miralax Powder 17GM PACKET PO PRN (10:30)
[2016-11-27] MEDS: hydroDIURIL 25 MG PO SCH (10:30)
[2016-11-27] MEDS: Colace 100 MG PO SCH ×2 (10:30→22:24)
[2016-11-27] MEDS: Lopressor 50 MG PO SCH (10:30)
[2016-11-27] MEDS: DELTASONE 20 MG PO SCH (10:30)
[2016-11-27] MEDS: celeBREX 100 MG PO SCH (10:30)
[2016-11-27] MEDS: ROCEPHIN 1 Gm-D5w 50 ml Bag** 50 ML IV SCH (18:26)
[2016-11-27] MEDS: Macrobid 100MG Capsule PO SCH (22:28)
[2016-11-28] MEDS: Norco 10/325 MG Tablet PO SCH ×4 (02:52→21:00)
[2016-11-28] MEDS: Sodium Chloride 0.9% 1000 ML 1,000 ML IV SCH (04:28)
[2016-11-28] MEDS: Zofran 4 MG/2 ML VIAL IV PRN (07:51)
[2016-11-28] MEDS: celeBREX 100 MG PO SCH (09:19)
[2016-11-28] MEDS: hydroDIURIL 25 MG PO SCH (09:19)
[2016-11-28] MEDS: DELTASONE 20 MG PO SCH (09:20)
[2016-11-28] MEDS: Colace 100 MG PO SCH ×2 (09:20→20:53)
[2016-11-28] MEDS: ENOXAPARIN SODIUM SQ SCH (09:20)
[2016-11-28] MEDS: Lopressor 50 MG PO SCH (09:23)
[2016-11-28] MEDS: Phenergan 25 MG INJ IV PRN (10:30)
[2016-11-28] MEDS: ROCEPHIN 1 Gm-D5w 50 ml Bag** 50 ML IV SCH (17:30)
[2016-11-29] MEDS: Sodium Chloride 0.9% 1000 ML 1,000 ML IV SCH (02:34)
[2016-11-29] MEDS: Norco 10/325 MG Tablet PO SCH ×4 (03:28→21:54)
[2016-11-29] MEDS: MORPHINE SULFATE 2 MG INJ IV PRN (06:04)
[2016-11-29] MEDS: Colace 100 MG PO SCH ×2 (08:47→21:54)
[2016-11-29] MEDS: celeBREX 100 MG PO SCH (08:47)
[2016-11-29] MEDS: Lopressor 50 MG PO SCH (08:47)
[2016-11-29] MEDS: ENOXAPARIN SODIUM SQ SCH (10:05)
[2016-11-29] MEDS: hydroDIURIL 25 MG PO SCH (10:05)
[2016-11-29] MEDS: DELTASONE 20 MG PO SCH (10:05)
[2016-11-29] MEDS: ROCEPHIN 1 Gm-D5w 50 ml Bag** 50 ML IV SCH (17:12)
[2016-11-30] MEDS: Sodium Chloride 0.9% 1000 ML 1,000 ML IV SCH (01:30)
[2016-11-30] MEDS: Norco 10/325 MG Tablet PO SCH ×4 (03:18→20:30)
[2016-11-30] MEDS: Phenergan 25 MG INJ IV PRN (07:40)
--- NOTE | 2016-11-30 08:52 | PCM.NOTE ---
Date and Time: 11/30/16 0849 Subjective Assessment: Pt did great yesterday, walked 3x and didn't have any pain. However this morning she is c/o 10/10 pain radiating from the back to RLQ. Nauseated currently; this started after the pain began. Otherwise has been tolerating po. - Review of Systems Constitutional: No Fever Abdominal/Gastrointestinal: Nausea, No Vomiting Objective Exam General Appearance: mild distress Neurologic Exam: alert, oriented x 3, cooperative Skin Exam: normal color, warm, dry Respiratory Exam: normal breath sounds, crackles/rales (bases bilat), No wheezing Cardiovascular Exam: irregular, No murmur Gastrointestinal/Abdomen Exam: soft, No tenderness, No distention Extremity Exam: No pedal edema, No swelling OBJECTIVE DATA Vital Signs: Vital Signs - 24 hr Temp Pulse Resp BP Pulse Ox 11/30/16 07:56 97.8 F 70 20 124/68 98 11/29/16 20:32 74 18 98 11/29/16 20:00 98.2 F 75 20 126/67 95 Pain Assessment - Last Documented Pain Intensity 5 Pain Scale Used 0-10 Pain Scale Intake and Output: Intake & Output 11/27/16 11/28/16 11/29/16 11/30/16 11:59 11:59 11:59 11:59 Intake Total 2129 1117 2839 2868 Output Total 300 500 Balance 1829 1117 2339 2868 Weight 78.018 kg Assessment/Plan (1) Compression fracture of L1 lumbar vertebra Current Visit: No Status: Acute Qualifiers: Encounter type: subsequent encounter Assessment & Plan: Still having pain today; I discussed whether she would reconsider the kyphoplasty. She would like to wait a few days and see if she improves. She would like to avoid surgery. Code(s): S32.010A - WEDGE COMPRESSION FRACTURE OF FIRST LUMBAR VERTEBRA, INIT (2) Abdominal pain Current Visit: Yes Status: Acute Qualifiers: Abdominal location: right lower quadrant Qualified Code(s): R10.31 - Right lower quadrant pain Assessment & Plan: CT abd/pelvis with no acute findings last week. I think just referred pain from the back. Code(s): R10.9 - UNSPECIFIED ABDOMINAL PAIN (3) Anemia Current Visit: No Status: Acute Qualifiers: Anemia type: unspecified type Qualified Code(s): D64.9 - Anemia, unspecified Assessment & Plan: recheck in a.m. Code(s): D64.9 - ANEMIA, UNSPECIFIED (4) Abdominal mass Current Visit: No Status: Acute Assessment & Plan: none palpable this morning. Code(s): R19.00 - INTRA-ABD AND PELVIC SWELLING, MASS AND LUMP, UNSP SITE (5) Atrial fibrillation Current Visit: No Status: Acute Assessment & Plan: intermittent. will be sent home on [employer]. Code(s): I48.91 - UNSPECIFIED ATRIAL FIBRILLATION
[2016-11-30] MEDS: Miralax Powder 17GM PACKET PO PRN (10:35)
[2016-11-30] MEDS: hydroDIURIL 25 MG PO SCH (10:35)
[2016-11-30] MEDS: Lopressor 50 MG PO SCH (10:35)
[2016-11-30] MEDS: Colace 100 MG PO SCH ×2 (10:35→20:29)
[2016-11-30] MEDS: celeBREX 100 MG PO SCH (10:35)
[2016-11-30] MEDS: ENOXAPARIN SODIUM SQ SCH (10:35)
[2016-11-30] MEDS: DELTASONE 20 MG PO SCH (14:50)
[2016-11-30] MEDS: Sodium Chloride 0.9% 10 ML FLUSH Syringe IV SCH (23:32)
[2016-12-01] MEDS: Norco 10/325 MG Tablet PO SCH ×4 (01:58→20:11)
[2016-12-01 05:52] LABS: BASOPHIL % 0.1 % (0.0-0.4); Granulocytes % 77.9 % (36.0-66.0); Lymphocytes % 16.7 % (24.0-44.0); Mean Cell Volume 93.6 fl (78-100); Mean Corpuscular Hemoglobin 30.9 pg (26-32); Mean Platelet Volume 9.3 fl (6-9.5); Monocytes % 5.3 % (0.0-12.0); Platelet Count 340 K/mm3 (150-450); Red Cell Distribution Width 15.3 % (11.5-14.0); White Blood Count 7.3 K/mm3 (4.0-10.5)
[2016-12-01 06:10] LABS: ANION GAP 10.5 MEQ/L (5-15); BLOOD UREA NITROGEN 16 mg/dL (9-20); CHLORIDE 103 mEq/L (98-107); Carbon Dioxide 26.7 mEq/L (21-32); Glucose 120 MG/DL (70-110); Potassium 3.8 mEq/L (3.5-5.1); SODIUM 136 mEq/L (136-145)
[2016-12-01] MEDS: Sodium Chloride 0.9% 10 ML FLUSH Syringe IV SCH ×3 (06:26→22:50)
[2016-12-01] MEDS: DELTASONE 20 MG PO SCH (08:46)
[2016-12-01] MEDS: celeBREX 100 MG PO SCH (10:53)
[2016-12-01] MEDS: ENOXAPARIN SODIUM SQ SCH (10:53)
[2016-12-01] MEDS: hydroDIURIL 25 MG PO SCH (10:53)
[2016-12-01] MEDS: Colace 100 MG PO SCH ×2 (10:53→21:42)
[2016-12-01] MEDS: Lopressor 50 MG PO SCH (10:53)
[2016-12-02] MEDS: Norco 10/325 MG Tablet PO SCH ×4 (03:19→22:04)
[2016-12-02] MEDS: Sodium Chloride 0.9% 10 ML FLUSH Syringe IV SCH (06:17)
[2016-12-02] MEDS: hydroDIURIL 25 MG PO SCH (09:23)
[2016-12-02] MEDS: ENOXAPARIN SODIUM SQ SCH ×2 (09:23→10:25)
[2016-12-02] MEDS: celeBREX 100 MG PO SCH (09:23)
[2016-12-02] MEDS: Colace 100 MG PO SCH ×2 (09:23→22:03)
[2016-12-02] MEDS: DELTASONE 20 MG PO SCH (09:23)
[2016-12-02] MEDS: Miralax Powder 17GM PACKET PO PRN (09:24)
[2016-12-02] MEDS: Lopressor 50 MG PO SCH (09:24)
[2016-12-03] MEDS: Norco 10/325 MG Tablet PO SCH ×4 (03:50→20:28)
[2016-12-03] MEDS: Lopressor 50 MG PO SCH (09:00)
[2016-12-03] MEDS: MORPHINE SULFATE 2 MG INJ IV PRN (11:28)
[2016-12-03] MEDS ORDERED: Lactated Ringers 1,000 ML IV ONE (16:15)
[2016-12-03] MEDS ORDERED: SUBLIMAZE 100 MCG/2 ML ONE (17:21)
[2016-12-03] MEDS: hydroDIURIL 25 MG PO SCH (19:16)
[2016-12-03] MEDS: celeBREX 100 MG PO SCH (19:16)
[2016-12-03] MEDS: DELTASONE 20 MG PO SCH (19:16)
[2016-12-03] MEDS: ENOXAPARIN SODIUM SQ SCH (19:17)
[2016-12-03] MEDS: Colace 100 MG PO SCH ×2 (19:17→20:28)
[2016-12-04] MEDS: Norco 10/325 MG Tablet PO SCH ×4 (02:55→22:04)
[2016-12-04] MEDS ORDERED: Sodium Chloride 0.9% 10 ML FLUSH Syringe IV PRN (07:33)
--- NOTE | 2016-12-04 08:47 | PCM.NOTE ---
Date and Time: 12/04/16 0844 Subjective Assessment: Pt had kyphoplasty. Done last night - she has no pain this morning! Has been up to the bathroom. No complaints. Lashawn po. - Review of Systems Constitutional: No Fever Cardiac: No No Symptoms Objective Exam General Appearance: no apparent distress Neurologic Exam: alert, oriented x 3, cooperative Skin Exam: normal color, warm, dry Respiratory Exam: normal breath sounds, lungs clear, No crackles/rales, No rhonchi, No wheezing Cardiovascular Exam: tachycardia, irregular Gastrointestinal/Abdomen Exam: soft, No tenderness, No distention Extremity Exam: No pedal edema, No swelling Back Exam: other (dressing in place; no surroundign erythema) OBJECTIVE DATA Vital Signs: Vital Signs - 24 hr Temp Pulse Resp BP BP Pulse Ox 12/04/16 07:35 97.7 F 69 18 131/72 96 12/04/16 04:00 18 12/04/16 00:00 17 12/03/16 21:05 97.9 F 71 16 102/56 99 12/03/16 20:05 97.8 F 74 20 152/79 97 12/03/16 20:00 16 12/03/16 19:05 97.4 F 73 16 136/71 97 12/03/16 18:35 97.7 F 74 16 135/77 96 12/03/16 18:05 97.6 F 77 18 141/75 98 12/03/16 17:55 97.6 F 73 17 153/74 95 12/03/16 13:56 97.7 F 75 17 135/79 95 Oxygen-Last 24 hours O2 Percentage 3 Liters = 32% O2 Percentage 3 Liters = 32% O2 Percentage 3 Liters = 32% O2 Percentage 3 Liters = 32% O2 Percentage 3 Liters = 32% O2 Percentage 3 Liters = 32% Pain Assessment - Last Documented Pain Intensity 0 Pain Scale Used 0-10 Pain Scale Intake and Output: Intake & Output 12/01/16 12/02/16 12/03/16 12/04/16 11:59 11:59 11:59 11:59 Intake Total 2447 1680 1260 200 Balance 2447 1680 1260 200 Weight 78.018 kg 78.018 kg 78.018 kg Assessment/Plan (1) Compression fracture of L1 lumbar vertebra Current Visit: No Status: Acute Qualifiers: Encounter type: subsequent encounter Assessment & Plan: kyphoplasty done. plans rehab. Code(s): S32.010A - WEDGE COMPRESSION FRACTURE OF FIRST LUMBAR VERTEBRA, INIT (2) Atrial fibrillation Current Visit: No Status: Acute Assessment & Plan: new onset. Tachycardic currently - put pt on monitor and tx as needed. Code(s): I48.91 - UNSPECIFIED ATRIAL FIBRILLATION (3) Abdominal pain Current Visit: Yes Status: Resolved Qualifiers: Abdominal location: right lower quadrant Qualified Code(s): R10.31 - Right lower quadrant pain Code(s): R10.9 - UNSPECIFIED ABDOMINAL PAIN (4) Anemia Current Visit: No Status: Acute Qualifiers: Anemia type: unspecified type Qualified Code(s): D64.9 - Anemia, unspecified Assessment & Plan: recheck in a.m. Code(s): D64.9 - ANEMIA, UNSPECIFIED (5) Abdominal mass Current Visit: No Status: Acute Qualifiers: Abdominal location: other location Qualified Code(s): R19.09 - Other intra- abdominal and pelvic swelling, mass and lump Assessment & Plan: suprapubic; not present on exam today. I think solely related to the bladder. Code(s): R19.00 - INTRA-ABD AND PELVIC SWELLING, MASS AND LUMP, UNSP SITE
[2016-12-04] MEDS: DELTASONE 20 MG PO SCH (10:10)
[2016-12-04] MEDS: Cardizem 30 MG PO SCH ×5 (10:10→22:03)
[2016-12-04] MEDS: ENOXAPARIN SODIUM SQ SCH (10:11)
[2016-12-04] MEDS: Lopressor 50 MG PO SCH (10:11)
[2016-12-04] MEDS: Colace 100 MG PO SCH ×2 (10:11→22:07)
[2016-12-04] MEDS: celeBREX 100 MG PO SCH (10:11)
[2016-12-04] MEDS: Miralax Powder 17GM PACKET PO PRN (10:12)
[2016-12-04] MEDS: hydroDIURIL 25 MG PO SCH (10:12)
[2016-12-04] MEDS: Sodium Chloride 0.9% 10 ML FLUSH Syringe IV SCH ×2 (11:38→22:07)
[2016-12-04] MEDS ORDERED: DOBUTREX 500 MG/D5W 250 ML 250 ML IV PRN (16:43)
[2016-12-05] MEDS: Norco 10/325 MG Tablet PO SCH ×4 (03:11→21:15)
[2016-12-05] MEDS: Sodium Chloride 0.9% 10 ML FLUSH Syringe IV SCH ×3 (07:18→22:00)
[2016-12-05] MEDS: Lopressor 50 MG PO SCH (09:41)
[2016-12-05] MEDS: celeBREX 100 MG PO SCH (09:41)
[2016-12-05] MEDS: hydroDIURIL 25 MG PO SCH (09:41)
[2016-12-05] MEDS: ENOXAPARIN SODIUM SQ SCH (09:41)
[2016-12-05] MEDS: Colace 100 MG PO SCH ×2 (09:41→22:00)
[2016-12-05] MEDS: Cardizem 30 MG PO SCH ×2 (09:41→21:15)
[2016-12-05] MEDS: DELTASONE 20 MG PO SCH (09:41)
[2016-12-06] MEDS: Norco 10/325 MG Tablet PO SCH ×4 (03:10→20:00)
[2016-12-06] MEDS: Cardizem 30 MG PO SCH ×2 (08:51→21:16)
[2016-12-06] MEDS: Lopressor 50 MG PO SCH (08:52)
[2016-12-06] MEDS: hydroDIURIL 25 MG PO SCH (08:52)
[2016-12-06] MEDS: DELTASONE 20 MG PO SCH (08:52)
[2016-12-06] MEDS: celeBREX 100 MG PO SCH (08:52)
[2016-12-06] MEDS: Colace 100 MG PO SCH ×2 (08:54→21:16)
[2016-12-06] MEDS: ENOXAPARIN SODIUM SQ SCH (08:54)
[2016-12-06] MEDS: Sodium Chloride 0.9% 10 ML FLUSH Syringe IV SCH ×3 (09:46→21:18)
[2016-12-07] MEDS: Norco 10/325 MG Tablet PO SCH ×5 (03:57→21:00)
[2016-12-07] MEDS ORDERED: Aplisol ID SCH (10:00)
[2016-12-07] MEDS: Cardizem 30 MG PO SCH ×2 (10:08→21:00)
[2016-12-07] MEDS: Lopressor 50 MG PO SCH (10:08)
[2016-12-07] MEDS: Miralax Powder 17GM PACKET PO PRN (10:08)
[2016-12-07] MEDS: ENOXAPARIN SODIUM SQ SCH (10:08)
[2016-12-07] MEDS: DELTASONE 20 MG PO SCH (10:08)
[2016-12-07] MEDS: hydroDIURIL 25 MG PO SCH (10:08)
[2016-12-07] MEDS: celeBREX 100 MG PO SCH (10:08)
[2016-12-07] MEDS: Colace 100 MG PO SCH ×2 (10:09→21:51)
[2016-12-08] MEDS: Norco 10/325 MG Tablet PO SCH (03:25)
[2016-12-08] MEDS: Sodium Chloride 0.9% 10 ML FLUSH Syringe IV SCH (05:12)
[2016-12-08 07:46] VITALS: BP 176/85; PULSE 76; O2SAT 97
[2016-12-08] MEDS: Lopressor 50 MG PO SCH (09:30)
[2016-12-08] MEDS: hydroDIURIL 25 MG PO SCH (09:30)
[2016-12-08] MEDS: Colace 100 MG PO SCH (09:30)
[2016-12-08] MEDS: Cardizem 30 MG PO SCH (09:30)
[2016-12-08] MEDS: ENOXAPARIN SODIUM SQ SCH (09:32)
[2016-12-08] MEDS: DELTASONE 20 MG PO SCH (10:00)
[2016-12-08] MEDS: celeBREX 100 MG PO SCH (10:00)
== END 2016-12-08 13:50 | DRG 552 ==
LOC: MED SURG 14:40
PROVIDERS: ADMIT Family Medicine; ATTEND Family Medicine
DX: S32.010A Wedge compression fracture of first lumbar vertebra, initial encounter for closed fracture (principal); N39.0 Urinary tract infection, site not specified; R10.31 Right lower quadrant pain; D64.9 Anemia, unspecified; R19.09 Other intra-abdominal and pelvic swelling, mass and lump; I48.91 Unspecified atrial fibrillation; R13.10 Dysphagia, unspecified; M54.5 Low back pain
CPT/HCPCS: 36415; 80048; 82272; 82962; 85025; 94760; J0696; J1650; J2270; J2405; J2550; J3010; A9270-GY; J7506

== ENCOUNTER 2017-01-27 05:56 | Day surgery (SDC) | payer MEDICARE ==
[2017-01-27] MEDS ORDERED: Lactated Ringers 1,000 ML IV SCH (06:30)
[2017-01-27] MEDS ORDERED: DIPRIVAN 200 MG/20 ML IV ONE (08:00)
--- NOTE | 2017-01-27 08:12 | OP ---
SURGERY DATE/TIME: 01/27/201707 PREOPERATIVE DIAGNOSIS: Dysphagia. POSTOPERATIVE DIAGNOSES: 1) Hiatal hernia. 2) Distal esophageal strictures. PROCEDURE: EGD. SURGEON: Mono Olivas M.D. ANESTHESIA: MAC. ESTIMATED BLOOD LOSS: None. SPECIMENS: None. DESCRIPTION OF PROCEDURE: After informed written consent was obtained, the patient was taken to the endoscopy suite. She underwent monitored anesthesia and a bite block was inserted. The posterior oropharynx was directly visualized and the scope was easily passed into the esophagus. The esophageal mucosa had a normal mucosal appearance free of any lesions or defects. There were some strictures noted in the distal esophagus and moderate hiatal hernia upon entering the stomach cavity. The stomach had a normal rugated gastric mucosa free of lesions or defects. The pylorus was traverse and the antrum appeared normal and the first and second portions of the duodenum were within normal limits. On retroflexion moderate hiatal hernia was appreciable. Upon withdrawal again the distal esophageal strictures were noted. No other mucosal abnormalities were appreciable. The scope was removed and the patient was transferred to the recovery room in excellent condition. I have written a prescription for Protonix 40 mg daily and will relay to Dr. Farris likely need for surgical referral for possible dilatation.
[2017-01-27 08:21] VITALS: O2SAT 97
[2017-01-27 08:54] VITALS: BP 129/62; PULSE 71
== END 2017-01-27 08:45 ==
LOC: SDC 05:56
PROVIDERS: ATTEND Family Medicine
PROC: 0DJ08ZZ Inspection of Upper Intestinal Tract, Via Natural or Artificial Opening Endoscopic (ICD-10-PCS; principal; 2017-01-27)
DX: K44.9 Diaphragmatic hernia without obstruction or gangrene (principal); K22.2 Esophageal obstruction; I10 Essential (primary) hypertension; I48.91 Unspecified atrial fibrillation
CPT/HCPCS: 00740; 99100; J2704

== ENCOUNTER 2017-03-04 10:13 | Day surgery (SDC) | payer MEDICARE ==
--- NOTE | 2017-03-03 07:49 | HP ---
DATE OF SURGERY: 03/04/2017 ADMISSION DIAGNOSIS: Dysphagia. ANTICIPATED PROCEDURE: EGD possible dilatation. HISTORY OF PRESENT ILLNESS: The patient has had progressive dysphagia. She has been told she had hiatal hernia in the past. She cannot swallow at this time. We will do EGD and possible dilatation if indicated. The risk of perforation 1 out of 200 to 300 was discussed with her preoperatively. PAST MEDICAL HISTORY: ALLERGIES: NONE. MEDICATIONS: Multiple. PAST SURGICAL HISTORY: None recently. SOCIAL HISTORY: Negative. FAMILY HISTORY: Negative. REVIEW OF SYSTEMS: Negative. PHYSICAL EXAMINATION: VITAL SIGNS: Normal. CHEST: Clear. COR: Regular. NECK: Negative. No Crow syndrome. IMPRESSION: Dysphagia. PLAN: EGD and dilatation.
[2017-03-04] MEDS ORDERED: Sodium Chloride 0.9% 1000 ML 1,000 ML IV SCH (10:15)
[2017-03-04] MEDS ORDERED: Sodium Chloride 0.9% 1000 ML 1,000 ML ONE (10:24)
[2017-03-04] MEDS ORDERED: Lactated Ringers 1,000 ML IV ONE (12:43)
[2017-03-04 14:04] VITALS: BP 134/76; PULSE 67; O2SAT 97
[2017-03-04] MEDS ORDERED: DEMEROL 50 MG IV ONE (16:14)
[2017-03-04] MEDS ORDERED: DEMEROL 50 MG IJ ONE (16:14)
[2017-03-04] MEDS ORDERED: VERSED 5 MG/5 ML IV ONE (16:14)
--- NOTE | 2017-03-05 07:48 | OP ---
SURGERY DATE/TIME: 03/04/2017 1215 PREOPERATIVE DIAGNOSIS: Dysphagia. POSTOPERATIVE DIAGNOSIS: Presbyesophagus. PROCEDURE: EGD only. SURGEON: Markus Vazquez M.D. ANESTHESIA: IV sedation. COMPLICATIONS: None. CONDITION: Stable. INDICATION: A patient requiring evaluation. DESCRIPTION OF PROCEDURE: Taken to endoscopy. Left lateral decubitus position. After suitable sedation obtained the scope was introduced. The scope advanced. 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 There were five or six contraction lengths at one time in distal esophagus. There was no true stricture. There was no mucosal abnormality. There was no mucosal limitation. There was certainly not a stricture. Fundus, body, antrum satisfactory. Pylorus satisfactory. Duodenal bulb satisfactory. Second portion satisfactory. Scope withdrawn looped upon itself. No hiatal hernia from below. The scope withdrawn. Again spasm was seen in the distal esophagus. IMPRESSION: Presby esophagus. Instructions to include sitting upright, drinking lots of liquid, taking her time will all benefit this. There is nothing specific to do.
== END 2017-03-04 13:40 ==
LOC: SDC 10:13
PROVIDERS: ATTEND Surgery
PROC: 0DJ08ZZ Inspection of Upper Intestinal Tract, Via Natural or Artificial Opening Endoscopic (ICD-10-PCS; principal; 2017-03-04)
DX: K22.8 Other specified diseases of esophagus (principal)
CPT/HCPCS: J2175; J2250